=== PATIENT | female | born 1970 | race Caucasian/White ===

== ENCOUNTER 2017-09-13 16:56 | Emergency (ER) | payer MEDICARE, OTHER ==
[2017-09-13] MEDS: ONDANSETRON 4 MG INJ IV (17:27)
[2017-09-13] MEDS: SOD CHLORIDE 0.9% 1,000 ML IV (17:27)
[2017-09-13] MEDS: morphine 4 MG/ML VIAL IV (17:27)
[2017-09-13] MEDS: KETAMINE (50 MG/ML) 10 ML VIAL IV (18:15)
[2017-09-13 18:36] LABS: ADD MAN DIFF? NO
[2017-09-13 18:44] LABS: BASOPHILS % 0.7 % (0.0-2.0); EOSINOPHILS % 0.2 % (0.0-7.0); HEMATOCRIT 36.1 % (37.0-47.0); HEMOGLOBIN 11.9 g/dl (12.0-16.0); LYMPHOCYTES # 1.3 10^3/ul (0.8-2.9); LYMPHOCYTES % 28.7 % (15.0-51.0); MEAN CORPUSCULAR HEMOGLOBIN 34.2 pg (29.0-33.0); MEAN CORPUSCULAR VOLUME 103.7 fl (82.0-101.0); MEAN PLATELET VOLUME 9.6 fl (7.4-10.4); MONOCYTE # 0.3 10^3/ul (0.3-0.9); NEUTROPHIL # 2.9 10^3/ul (1.6-7.5); NEUTROPHILS % 63.2 % (39.0-77.0); PLATELET COUNT 165 10^3/UL (140-415); RED BLOOD COUNT 3.48 10^6/ul (4.20-5.40); RED CELL DISTRIBUTION WIDTH 12.9 % (11.5-14.5)
[2017-09-13 18:44] LABS: WHITE BLOOD COUNT 4.6 10^3/ul (4.8-10.8)
[2017-09-13 19:07] LABS: INR 0.99; PARTIAL THROMBOPLASTIN TIME 26.6 Sec (25.0-35.0); PROTIME 13.2 Sec (11.9-14.9)
[2017-09-13 19:08] LABS: ANION GAP 10 (8-16); BLOOD UREA NITROGEN 17 mg/dl (7-20); CALCIUM 8.2 mg/dl (8.4-10.2); CARBON DIOXIDE 21 mmol/L (21-31); CHLORIDE 113 mmol/L (97-110); CREATININE 0.57 mg/dl (0.44-1.00); GLUCOSE 78 mg/dl (70-220); POTASSIUM 3.6 mmol/L (3.5-5.1); SODIUM 140 mmol/L (135-144)
== END 2017-09-14 08:25 | disposition home or self-care (01) ==
LOC: E/R 09-14 08:25
DX: S42.291A Other displaced fracture of upper end of right humerus, initial encounter for closed fracture (principal); S40.811A Abrasion of right upper arm, initial encounter; S40.021A Contusion of right upper arm, initial encounter; X58.XXXA Exposure to other specified factors, initial encounter; Y92.9 Unspecified place or not applicable
CPT/HCPCS: 23605; 73030-RT; 80048; 85025; 85610; 85730; 86850; 86900; 86901; 94770; 96374; 96375; 99285-25

== ENCOUNTER 2017-09-18 16:43 | Emergency (ER) | payer MEDICARE ==
[2017-09-18] MEDS: ONDANSETRON (ODT) 4 MG TAB ODT (17:08)
[2017-09-18] MEDS: HYDROCODONE/APAP (10/325) TAB PO (17:09)
[2017-09-18] MEDS: KETOROLAC 15 MG INJ IM (17:09)
== END 2017-09-18 19:15 | disposition home or self-care (01) ==
LOC: E/R 16:43
DX: S42.291D Other displaced fracture of upper end of right humerus, subsequent encounter for fracture with routine healing (principal); X58.XXXD Exposure to other specified factors, subsequent encounter
CPT/HCPCS: 29125; 99283-25